=== PATIENT | male | born 1995 | race Hispanic/Latino ===

== ENCOUNTER 2017-10-24 11:13 | Emergency (ER) | payer SELFPAY ==
[2017-10-24] MEDS ORDERED: ONDANSETRON 4 MG/2 ML VIAL ONE (11:44)
[2017-10-24] MEDS ORDERED: NA CHLORIDE 0.9% 1,000 ML ONE (11:44)
[2017-10-24] MEDS ORDERED: MORPHINE 4 MG/ML SYR ONE (11:44)
[2017-10-24 11:52] LABS: Absolute Lymphocytes (CBC) 1.3 K/uL (0.7-4.9); Absolute Monocytes 0.7 K/uL (0.1-1.3); Absolute Neutrophil 12.9 K/uL (1.8-8.0); Basophils % 0.4 % (0-1.3); Eosinophils % 0.2 % (0-4.4); Hematocrit 43.9 % (39.6-49.0); Lymphocytes % 8.4 % (15.3-44.8); MCH 29.5 pg (27.0-35.0); MCV 89.5 fL (80-100); MPV 10.3 fL (7.6-11.3); Monocytes % 4.9 % (3.3-12.3); RBC Red Blood Cell Count 4.91 M/uL (4.33-5.43)
[2017-10-24 12:02] LABS: Potassium 3.4 mEq/L (3.6-5.0)
--- NOTE | 2017-10-24 12:02 | RAD REPORT ---
EXAM DESCRIPTION: CT - Stone Protocol - 10/24/2017 11:51 am CLINICAL HISTORY: Flank pain. Hematuria. COMPARISON: None. TECHNIQUE: Axial images were obtained without oral or IV contrast. Lack of contrast limits solid org an and vascular assessment. The [id number] spans the entirety of the system partially obscuring uppermost abdomen and lung bases. Coronal reformatted images were obtained and reviewed. All CT scans are performed using dose optimization technique as appropriate and may include automated exposure control or mA/KV adjustment according to patient size. FINDINGS: The lower lung ramirez are clear. Imaged portions of the liver and spleen show no suspicious findings on non-contrast imaging. The panc reas and adrenal glands are normal. No pathologic lymphadenopathy in the abdomen or pelvis. Punctate bilateral nephrolithiasis is seen. 4 mm stone is present at the left UVJ (520 HU) resulting in mild left hydronephrosis. No bowel obstruction, free air, free fluid or abscess. Normal appendix noted. No significant bony abnormality. IMPRESSION: 4 mm calculus (520 HU) at the left UVJ resulting in mild left hydronephrosis. Additional punctate bilateral nephrolithiasis.
--- NOTE | 2017-10-24 12:36 | EDPHYS ---
Physician Documentation [facility] Name: Agapito Polanco Age: 21 yrs Sex: Male : 1995 Arrival Date: 10/24/2017 Time: 11:14 Bed External Waiting Private MD: ED Physician Mukund Smith HPI: 10/24 11:33 This 21 yrs old Male presents to ER via Wheelchair with complaints of Possible kb Kidney Stone. 11:33 The patient presents with abdominal pain in the left lower quadrant. Onset: The kb symptoms/episode began/occurred 1.5 hour(s) ago. The symptoms do not radiate. Associated signs and symptoms: none. The symptoms are described as sharp. Modifying factors: The symptoms are alleviated by nothing, the symptoms are aggravated by pressure. Severity of pain: At its worst the pain was severe in the emergency department the pain is unchanged. The patient has not experienced similar symptoms in the past. The patient has not recently seen a physician. Historical: - Allergies: 11:17 No Known Allergies; ss - Immunization history:: Adult Immunizations up to date. - Social history:: Smoking status: Patient/guardian denies using tobacco. ROS: 11:33 Constitutional: Negative for fever, chills, and weight loss, Cardiovascular: Negative kb for chest pain, palpitations, and edema, Respiratory: Negative for shortness of breath, cough, wheezing, and pleuritic chest pain, Back: Negative for injury and pain, : Negative for injury, bleeding, discharge, and swelling, MS/Extremity: Negative for injury and deformity, Skin: Negative for injury, rash, and discoloration, Neuro: Negative for headache, weakness, numbness, tingling, and seizure. 11:33 Abdomen/GI: Positive for abdominal pain, Negative for nausea, vomiting, and diarrhea, constipation, abdominal cramps, abdominal distension, anorexia. Exam: 11:33 Constitutional: This is a well developed, well nourished patient who is awake, alert, kb and in no acute distress. Head/Face: Normocephalic, atraumatic. Chest/axilla: Normal chest wall appearance and motion. Nontender with no deformity. No lesions are appreciated. Cardiovascular: Regular rate and rhythm with a normal S1 and S2. No gallops, murmurs, or rubs. Normal PMI, no JVD. No pulse deficits. Respiratory: Lungs have equal breath sounds bilaterally, clear to auscultation and percussion. No rales, rhonchi or wheezes noted. No increased work of breathing, no retractions or nasal flaring. Back: No spinal tenderness. No costovertebral tenderness. Full range of motion. Skin: Warm, dry with normal turgor. Normal color with no rashes, no lesions, and no evidence of cellulitis. MS/ Extremity: Pulses equal, no cyanosis. Neurovascular intact. Full, normal range of motion. Neuro: Awake and alert, GCS 15, oriented to person, place, time, and situation. Cranial nerves II-XII grossly intact. Motor strength 5/5 in all extremities. Sensory grossly intact. Cerebellar exam normal. Normal gait. 11:33 Abdomen/GI: Inspection: abdomen appears normal, Bowel sounds: normal, in all quadrants, Palpation: soft, in all quadrants, severe abdominal tenderness, in the left lower quadrant. Vital Signs: 11:17 Weight 90.72 kg; Height 5 ft. 8 in. (172.72 cm); Pain 10/10; ss 11:22 BP 119 / 82; Pulse 65; Resp 25; Temp 97.8(TE); Pulse Ox 100% on R/A; ss 12:16 BP 123 / 75; Pulse 80; Resp 18; Pulse Ox 98% on R/A; sv 13:40 BP 122 / 70; Pulse 78; Resp 16; Pulse Ox 100% on R/A; Pain 0/10; sg 11:17 Body Mass Index 30.41 (90.72 kg, 172.72 cm) ss Jhony Coma Score: 13:40 Eye Response: spontaneous(4). Verbal Response: oriented(5). Motor Response: obeys sg commands(6). Total: 15. MDM: 11:18 Patient medically screened. kb 11:33 Data reviewed: vital signs, nurses notes. Data interpreted: Pulse oximetry: on room air kb is 100 %. Interpretation: normal. 12:26 Counseling: I had a detailed discussion with the patient and/or guardian regarding: the kb historical points, exam findings, and any diagnostic results supporting the discharge/admit diagnosis, lab results, radiology results, the need for outpatient follow up, a urologist, to return to the emergency department if symptoms worsen or persist or if there are any questions or concerns that arise at home. 12:34 ED course: Pain is controlled at this time. Pt educated on diagnostic findings, kb diagnosis and medication. Educated to follow up with Dr Florez. Verbal understanding received . 10/24 11:21 Order name: Basic Metabolic Panel; Complete Time: 12:10 kb 10/24 11:21 Order name: CBC with Diff; Complete Time: 13:32 kb 10/24 11:21 Order name: CT Stone Protocol; Complete Time: 12:10 kb 10/24 11:53 Order name: CBC Smear Scan; Complete Time: 13:32 EDMS 10/24 11:21 Order name: IV Saline Lock; Complete Time: 13:00 kb 10/24 11:21 Order name: Labs collected and sent; Complete Time: 13:00 kb 10/24 11:21 Order name: Urine Dipstick-Ancillary (obtain specimen); Complete Time: 13:00 kb 10/24 11:32 Order name: Labs - recollect needed bd Administered Medications: 11:28 Drug: NS 0.9% 1000 ml Route: IV; Rate: 1000 ml; Site: right antecubital; kb 12:25 Follow up: Response: No adverse reaction; IV Status: Completed infusion; IV Intake: sg 990ml 11:28 Drug: morphine 4 mg Route: IVP; Site: right antecubital; kb 11:29 Drug: Zofran 4 mg Route: IVP; Site: right antecubital; kb 12:30 Drug: Potassium Chloride 20 mEq Route: PO; sg 12:30 Drug: Flomax 0.4 mg Route: PO; sg 12:30 Drug: TORadol 30 mg Route: IVP; Site: right antecubital; sg 12:30 Drug: Rocephin - (cefTRIAXone) 1 grams {Note: administered slow IVP as per policy.} sg Route: IVPB; Infused Over: 30 mins; Site: right antecubital; Disposition: 14:45 Co-signature as Attending Physician, Mukund Smith MD. Disposition: 10/24/17 12:35 Discharged to Home. Impression: Calculus of kidney and ureter. - Condition is Stable. - Discharge Instructions: Kidney Stones, [id number], Dietary Guidelines to Help Prevent Kidney Stones. - Prescriptions for Tylenol- Codeine #3 300-30 mg Oral Tablet - take 1 tablet by ORAL route every 6 hours As needed; 10 tablet. Zofran 4 mg Oral Tablet - take 1 tablet by ORAL route every 6 hours As needed; 20 tablet. Flomax 0.4 mg Oral Capsule, Sust. Release 24 hr - take 1 capsule by ORAL route once daily 1/2 hour following the same meal each day; 10 capsule. Diclofenac Sodium 75 mg Oral Tablet, Delayed Release (E.C.) - take 1 tablet by ORAL route 2 times per day As needed; 30 tablet. Macrobid 100 mg Oral Capsule - take 1 capsule by ORAL route every 12 hours for 7 days; 14 capsule. - Medication Reconciliation Form, Thank You Letter, Antibiotic Education, Prescription Opioid Use, Work release form form. - Follow up: Emergency Department; When: As needed; Reason: Worsening of condition. Follow up: Private Physician; When: 2 - 3 days; Reason: Recheck today's complaints, Continuance of care, Re-evaluation by your physician. Follow up: Chandler Florez MD; When: 2 - 3 days; Reason: Recheck today's complaints. Signatures: Dispatcher [employer] EDMS Yenifer Frye, CARE MANAGEMENT ASSOCIATE-C CARE MANAGEMENT ASSOCIATE-Ckb Brenda Herring Stephanie, RN RN Yuan Rivera RN RN sg Smirch, Shelby, RN RN ss Starr, Gregory, MD MD
--- NOTE | 2017-10-24 12:36 | ER ---
Nurse's Notes [facility] Name: Agapito Polanco Age: 21 yrs Sex: Male : 1995 Arrival Date: 10/24/2017 Time: 11:14 Bed External Waiting [facility] MD: Diagnosis: Calculus of kidney and ureter Presentation: 10/24 11:16 Presenting complaint: Patient states: sharp LLQ pain that began this morning. Denies ss nausea. Transition of care: patient was not received from another setting of care. Onset of symptoms was October 24, 2017. Care prior to arrival: None. 11:16 Method Of Arrival: Wheelchair ss 11:16 Acuity: ANDIE 3 ss Triage Assessment: 12:00 General: Appears in no apparent distress. comfortable, well groomed, well developed, sg well nourished, Behavior is calm, cooperative, appropriate for age. Historical: - Allergies: 11:17 No Known Allergies; ss - Immunization history:: Adult Immunizations up to date. - Social history:: Smoking status: Patient/guardian denies using tobacco. Screenin:35 Abuse screen: Denies threats or abuse. Denies injuries from another. Nutritional sg screening: No deficits noted. Tuberculosis screening: No symptoms or risk factors identified. Never had TB. Fall Risk None identified. Assessment: 12:00 General: Appears in no apparent distress. comfortable, well groomed, well developed, sg well nourished, Behavior is calm, cooperative, appropriate for age. Pain: Complains of pain in suprapubic area and left lower quadrant. Neuro: Level of Consciousness is awake, alert, obeys commands, Oriented to person, place, time, Gis Administrator are equal bilaterally Moves all extremities. Full function Speech is normal, Facial symmetry appears normal. Cardiovascular: Heart tones S1 S2 present Capillary refill is brisk in bilateral fingers Pulses are palpable in right radial artery and left radial artery. Respiratory: Airway is patent Respiratory effort is even, unlabored, Respiratory pattern is regular, symmetrical, Breath sounds are clear. GI: Bowel sounds present X 4 quads. Abd is soft and non tender X 4 quads. GI: Abdomen is round non-distended, Reports lower abdominal pain, nausea, vomiting. : No signs and/or symptoms were reported regarding the genitourinary system. EENT: No signs and/or symptoms were reported regarding the EENT system. Derm: Skin is normal, ventiligo patches noted to hands, face and neck. Musculoskeletal: No signs and/or symptoms reported regarding the musculoskeletal system. 13:00 Reassessment: Patient appears in no apparent distress at this time. Patient and/or sg family updated on plan of care and expected duration. Pain level reassessed. Patient is alert, oriented x 3, equal unlabored respirations, skin warm/dry/pink. Patient states feeling better. Vital Signs: 11:17 Weight 90.72 kg; Height 5 ft. 8 in. (172.72 cm); Pain 10/10; ss 11:22 BP 119 / 82; Pulse 65; Resp 25; Temp 97.8(TE); Pulse Ox 100% on R/A; ss 12:16 BP 123 / 75; Pulse 80; Resp 18; Pulse Ox 98% on R/A; sv 13:40 BP 122 / 70; Pulse 78; Resp 16; Pulse Ox 100% on R/A; Pain 0/10; sg 11:17 Body Mass Index 30.41 (90.72 kg, 172.72 cm) ss Jhony Coma Score: 13:40 Eye Response: spontaneous(4). Verbal Response: oriented(5). Motor Response: obeys sg commands(6). Total: 15. ED Course: 11:14 Patient arrived in ED. as 11:17 Triage completed. ss 11:17 Arm band placed on right wrist. ss 11:18 Yenifer Frye FNP-C is [facility]. kb 11:18 Mukund Smith MD is Attending Physician. kb 11:32 Inserted saline lock: 18 gauge in right antecubital area, using aseptic technique. sv Blood collected. IV inserted by patrol judge Jamie. 11:47 CT completed. Patient tolerated procedure well. Patient moved to CT via stretcher. sj Patient moved back from CT. 11:51 CT Stone Protocol In Process Unspecified. EDMS 12:00 Patient has correct armband on for positive identification. Bed in low position. Call sg light in reach. Side rails up X2. Pulse ox on. NIBP on. Warm blanket given. Head of bed elevated. 12:16 Blessing Owen, ELENI is Primary Nurse. sv 12:36 Chandler Florez MD is Referral Physician. kb 13:40 No provider procedures requiring assistance completed. IV discontinued, intact, sg bleeding controlled, No redness/swelling at site. Pressure dressing applied. Administered Medications: 11:28 Drug: NS 0.9% 1000 ml Route: IV; Rate: 1000 ml; Site: right antecubital; kb 12:25 Follow up: Response: No adverse reaction; IV Status: Completed infusion; IV Intake: sg 990ml 11:28 Drug: morphine 4 mg Route: IVP; Site: right antecubital; kb 11:29 Drug: Zofran 4 mg Route: IVP; Site: right antecubital; kb 12:30 Drug: Potassium Chloride 20 mEq Route: PO; sg 12:30 Drug: Flomax 0.4 mg Route: PO; sg 12:30 Drug: TORadol 30 mg Route: IVP; Site: right antecubital; sg 12:30 Drug: Rocephin - (cefTRIAXone) 1 grams {Note: administered slow IVP as per policy.} sg Route: IVPB; Infused Over: 30 mins; Site: right antecubital; Intake: 12:25 IV: 990ml; Total: 990ml. sg Outcome: 12:35 Discharge ordered by MD. kb 13:45 Discharged to home ambulatory, with family. sg 13:45 Condition: good 13:45 Discharge instructions given to patient, Instructed on discharge instructions, follow up and referral plans. medication usage, safety practices, Demonstrated understanding of instructions, follow-up care, medications, Prescriptions given X 4. 13:59 Patient left the ED. sg Signatures: Dispatcher [employer] EDNY Yenifer Frye, TERRI-Juliocesar FUNERAL GREETER-Blessing Zhang RN RN sv Gay, Steven, RN RN sg Jones, Susan sj Martinez, Amelia as Smirch, Shelby, RN RN ss Corrections: (The following items were deleted from the chart) 16:47 16:46 Patient left the ED. twila mattson
[2017-10-24] MEDS ORDERED: POTASSIUM CL SA 10 MEQ TAB PO ONE (12:40)
[2017-10-24] MEDS ORDERED: CEFTRIAXONE/SWI 1gm 1 GM/10 ML SYR ONE (12:41)
[2017-10-24] MEDS ORDERED: TAMSULOSIN 0.4 MG SR CAP ONE (12:41)
[2017-10-24] MEDS ORDERED: KETOROLAC 30 MG/ML INJ ONE (12:41)
[2017-10-24 13:21] LABS: Blood Morphology Comment NOT SEEN (NOT SEEN); Platelet Estimate ADEQ; Urine White Blood Cell Casts OK
== END 2017-10-24 16:46 | disposition home or self-care (01) ==
LOC: ER 11:13
DX: N20.2 Calculus of kidney with calculus of ureter (principal)
CPT/HCPCS: 36415; 74176; 76377; 80048; 85025; 96361; 96374; 96375; 99284; J0696; J2405; J7030